=== PATIENT | female | born 1980 | race Caucasian/White ===

== ENCOUNTER 2017-08-28 20:18 | Emergency (ER) | payer MEDICAID ==
[~2017-08-28 20:18] MED LIST: AMOXICILLIN500 MG PO; LAC PO; MOTRIN800 MG PO; TYLENOL325 MG PO
[2017-08-28 23:27] VITALS: BP 103/42
== END 2017-08-28 23:27 | disposition home or self-care (01) ==
LOC: ED 20:18
DX: K64.5 Perianal venous thrombosis (principal)
CPT/HCPCS: J2001